=== PATIENT | male | born 1945 | race Caucasian/White ===

== ENCOUNTER 2017-08-17 12:54 | Emergency (ER) | payer MEDICARE, OTHER ==
[~2017-08-17] VITALS: Ht 167.6 cm; Wt 56.7 kg
[~2017-08-17 12:54] MED LIST: CHOL100015; LOSA50TA6; OMEP20CA9; TIOT18CA
[2017-08-17 14:11] VITALS: BP 152/60
== END 2017-08-17 15:11 | disposition home or self-care (01) ==
LOC: ED 15:05
DX: K40.90 Unilateral inguinal hernia, without obstruction or gangrene, not specified as recurrent (principal)
CPT/HCPCS: 99281; 99282

== ENCOUNTER → 2017-10-18 | Outpatient (CLI) | payer OTHER ==
[~2017-10-18] MED LIST changes: -LOSA50TA6; +LOSA50TA7
== END | disposition home or self-care (01) ==
LOC: CFH 10:22
PROVIDERS: ATTEND Family Medicine
DX: Z12.2 Encounter for screening for malignant neoplasm of respiratory organs (principal); R91.8 Other nonspecific abnormal finding of lung field; I25.10 Atherosclerotic heart disease of native coronary artery without angina pectoris; J43.9 Emphysema, unspecified; F17.210 Nicotine dependence, cigarettes, uncomplicated
CPT/HCPCS: G0297

== ENCOUNTER → 2017-11-20 | Outpatient (CLI) | payer OTHER ==
[~2017-11-20] MED LIST changes: +None per pt
== END | disposition home or self-care (01) ==
LOC: RAD 12:27
PROVIDERS: ATTEND Internal Medicine
DX: R91.8 Other nonspecific abnormal finding of lung field (principal); J43.2 Centrilobular emphysema
CPT/HCPCS: 71250

== ENCOUNTER 2017-11-22 08:24 | Day surgery (SDC) | payer OTHER ==
[~2017-11-22] VITALS: Ht 167.6 cm; Wt 55.5 kg
[2017-11-22] MEDS ORDERED: LACTATED RINGERS 1,000 ML IV SCH (08:55)
[2017-11-22 08:57] VITALS: BP 125/77
[2017-11-22] MEDS ORDERED: LIDOCAINE-MPF 1%, 2ML INFIL ONE (09:00)
[2017-11-22] MEDS ORDERED: FENTANYL PF 100 MCG/2ML ONE (10:16)
[2017-11-22] MEDS ORDERED: OXYcodone 5 MG/5 ML ORAL.SOL UDC PO PRN (11:30)
[2017-11-22] MEDS ORDERED: PROMETHAZINE 25 MG/ML, 1ML IV PRN (11:30)
[2017-11-22] MEDS ORDERED: ONDANSETRON 2MG/ML, 2ML IV PRN (11:30)
[2017-11-22] MEDS ORDERED: FENTANYL PF 100 MCG/2ML IV PRN (11:30)
[2017-11-22] MEDS ORDERED: ONDANSETRON ODT 8 MG PO PRN (11:30)
[2017-11-22] MEDS ORDERED: ACETAMINOPHEN 325 MG TABLET PO PRN (11:30)
[2017-11-22] MEDS ORDERED: PROPOFOL 10 MG/ML, 20ML ONE (12:17)
[2017-11-22] MEDS ORDERED: CEFAZOLIN 1,000 MG ONE (12:17)
[2017-11-22] MEDS ORDERED: DEXAMETHASONE 4 MG/ML, 1ML ONE (12:17)
[2017-11-22] MEDS ORDERED: GLYCOPYRROLATE 0.2MG/1ML, 5ML ONE (12:17)
[2017-11-22] MEDS ORDERED: ROCURONIUM 10MG/ML,5ML ONE (12:17)
[2017-11-22] MEDS ORDERED: SUCCINYLCHOLINE 20 MG/ML, 10ML ONE (12:17)
[2017-11-22] MEDS ORDERED: NEOSTIGMINE 1 MG/ML, 10ML ONE (12:17)
[2017-11-22] MEDS ORDERED: ONDANSETRON 2MG/ML, 2ML ONE (12:17)
== END 2017-11-22 15:05 | disposition home or self-care (01) ==
LOC: OUT 08:24
PROVIDERS: ATTEND Internal Medicine
DX: C34.12 Malignant neoplasm of upper lobe, left bronchus or lung (principal); J43.9 Emphysema, unspecified; F17.200 Nicotine dependence, unspecified, uncomplicated; Z79.82 Long term (current) use of aspirin
CPT/HCPCS: 31625; 31627; 31628; 31629; 71045; 76001; 88172; 88173; 88177; 88305; 88341; 88342; 93005; J0330; J0690; J1100; J2405; J2704; J2710; J3010; J3490; J7120; G0461

== ENCOUNTER → 2017-11-28 | Outpatient (CLI) | payer OTHER | END | disposition home or self-care (01) | LOC: CARD 13:34 | PROVIDERS: ATTEND Internal Medicine | DX: J44.9 Chronic obstructive pulmonary disease, unspecified (principal) | CPT/HCPCS: 94060; 94618; 94726; 94729 ==

== ENCOUNTER → 2017-11-30 | Outpatient (CLI) | payer OTHER | END | disposition home or self-care (01) | LOC: PETCFH 09:45 | PROVIDERS: ATTEND Thoracic Surgery (Cardiothoracic Vascular Surgery) | DX: J43.9 Emphysema, unspecified (principal); R91.1 Solitary pulmonary nodule | CPT/HCPCS: 78815; A9552 ==

== ENCOUNTER → 2017-12-07 | Outpatient (CLI) | payer OTHER | END | disposition home or self-care (01) | LOC: ROC 07:33 | PROVIDERS: ATTEND Radiology Radiation Oncology | DX: C34.12 Malignant neoplasm of upper lobe, left bronchus or lung (principal) | CPT/HCPCS: 99214; G0463 ==

== ENCOUNTER → 2018-04-18 | Outpatient (CLI) | payer MEDICARE ==
[~2018-04-18] MED LIST changes: +LOSA50TA14; -LOSA50TA7
== END | disposition home or self-care (01) ==
LOC: CFH 10:41
PROVIDERS: ATTEND Radiology Radiation Oncology
DX: J98.2 Interstitial emphysema (principal); C34.12 Malignant neoplasm of upper lobe, left bronchus or lung; I10 Essential (primary) hypertension; I70.0 Atherosclerosis of aorta; N28.1 Cyst of kidney, acquired; M62.89 Other specified disorders of muscle; R91.8 Other nonspecific abnormal finding of lung field
CPT/HCPCS: 71250

== ENCOUNTER → 2018-04-19 | Outpatient (CLI) | payer MEDICARE | END | disposition home or self-care (01) | LOC: ROC 07:53 | PROVIDERS: ATTEND Radiology Radiation Oncology | DX: Z08 Encounter for follow-up examination after completed treatment for malignant neoplasm (principal); C34.12 Malignant neoplasm of upper lobe, left bronchus or lung | CPT/HCPCS: 99213; G0463 ==

== ENCOUNTER → 2018-08-27 | Outpatient (CLI) | payer MEDICARE | END | disposition home or self-care (01) | LOC: CFH 09:10 | PROVIDERS: ATTEND Radiology Radiation Oncology | DX: C34.12 Malignant neoplasm of upper lobe, left bronchus or lung (principal); R91.8 Other nonspecific abnormal finding of lung field | CPT/HCPCS: 71250 ==

== ENCOUNTER 2018-09-17 07:45 | Outpatient (CLI) | payer MEDICARE | END 2018-09-17 23:59 | disposition home or self-care (01) | LOC: ROC 07:45 | PROVIDERS: ATTEND Radiology Radiation Oncology | DX: C34.12 Malignant neoplasm of upper lobe, left bronchus or lung (principal) | CPT/HCPCS: 99213; G0463 ==

== ENCOUNTER 2018-12-19 09:20 | Inpatient (IN) | payer MEDICARE ==
[~2018-12-19] VITALS: Ht 170.2 cm; Wt 56.7 kg
[2018-12-19] MEDS ORDERED: SODIUM CHLORIDE FLUSH 10ML SYR IVF ONE (10:00)
--- NOTE | 2018-12-19 10:36 | NUR ---
dr solorio spoke with dr rhodes
[2018-12-19 10:39] LABS: MEAN CORPUSCULAR HEMOGLOBIN 37.1 pg (27.5-34.5); MEAN CORPUSCULAR HGB CONC 33.2 g/dL (33.2-36.2); MEAN CORPUSCULAR VOLUME 111.8 fL (81-97); MEAN PLATELET VOLUME 8.9 fL (7.4-10.4); PLATELET COUNT 233 x10^3/uL (130-400); RED BLOOD COUNT 3.63 x10^6/uL (4.38-5.82); RED CELL DISTRIBUTION WIDTH 18.5 % (9.4-14.8)
[2018-12-19 10:49] LABS: INTERNATIONAL NORMALIZED RATIO 0.95 (0.93-1.1)
[2018-12-19 10:50] LABS: ALANINE AMINOTRANSFERASE 13 U/L (12-78); ALBUMIN 4.2 g/dL (3.4-5.0); ANION GAP 6 mmol/L (5-15); CALCIUM 8.9 mg/dL (8.5-10.1); CHLORIDE 106 mmol/L (98-107); CREATININE 0.74 mg/dL (0.7-1.3)
[2018-12-19 10:54] LABS: ALKALINE PHOSPHATASE 87 U/L (45-117); BILIRUBIN,TOTAL 0.8 mg/dL (0.2-1.0); TOTAL PROTEIN 8.5 g/dL (6.4-8.2); TROPONIN I < 0.015 ng/mL (0.000-0.045)
[2018-12-19 10:59] LABS: BASOPHILS # (AUTO) 0.05 x10^3/uL (0-0.1); BASOPHILS % (AUTO) 1 % (0-1); EOSINOPHILS # (AUTO) 0.07 x10^3/uL (0-0.4); EOSINOPHILS % (AUTO) 1 % (1-7); LYMPHOCYTES # (AUTO) 1.63 x10^3/uL (1-3.4); LYMPHOCYTES % (AUTO) 23 % (22-44); MD SCAN; MONOCYTES # (AUTO) 0.61 x10^3/uL (0.2-0.8); MONOCYTES % (AUTO) 9 % (2-9); NEUTROPHILS % (AUTO) 67 % (42-75)
[2018-12-19] MEDS ORDERED: DEXAMETHASONE 4 MG/ML, 1ML IVPush ONE (11:00)
[2018-12-19] MEDS ORDERED: FAMOTIDINE 20 MG/2 ML IVPush ONE (11:00)
[2018-12-19] MEDS ORDERED: FAMOTIDINE 20 MG/2 ML ONE (11:03)
[2018-12-19] MEDS ORDERED: DEXAMETHASONE 4 MG/ML, 1ML ONE (11:03)
[2018-12-19] MEDS ORDERED: GADOTERATE 7.5 MMOL/15 ML SYR ONE (11:34)
[2018-12-19] MEDS ORDERED: SODIUM CHLORIDE FLUSH 10ML SYR IVF PRN (12:00)
[2018-12-19] MEDS ORDERED: BUTALB/APAP/CAFFEINE 50MG/325MG/40MG PO PRN (12:30)
[2018-12-19] MEDS ORDERED: ONDANSETRON 2MG/ML, 2ML IVPush PRN (12:30)
[2018-12-19] MEDS ORDERED: ONDANSETRON ODT 4 MG PO PRN (12:30)
[2018-12-19] MEDS ORDERED: GUAIFENESIN/DM 200-20MG, 10ML UDC PO PRN (12:30)
[2018-12-19] MEDS ORDERED: hydrALAzine 20 MG/ML, 1ML IVPush PRN (12:30)
[2018-12-19] MEDS ORDERED: ACETAMINOPHEN 325 MG TABLET PO PRN (12:30)
[2018-12-19] MEDS ORDERED: CYCLOBENZAPRINE 10 MG TABLET PO PRN (12:30)
[2018-12-19] MEDS ORDERED: morphine SULFATE 10 MG/ML, 1ML IVPush PRN (12:30)
[2018-12-19] MEDS ORDERED: POLYETHYLENE GLYCOL 17 GM PACKET PO PRN (12:30)
[2018-12-19] MEDS ORDERED: ALBUTEROL/IPRATROPIUM 2.5MG/0.5MG, 3 ML ONE (13:09)
--- NOTE | 2018-12-19 13:15 | NUR ---
PT ATTEMPTED TO PROVIDE URINE SAMPLE. UNABLE AT THIS TIME. URINAL AT BEDSIDE. UPDATED ON PLAN OF CARE, DENIES ANY NEEDS OR CONCERNS, CALL LIGHT IN REACH.
--- NOTE | 2018-12-19 13:21 | NUR ---
REPORT CALLED TO RECEIVING RN.
[2018-12-19] MEDS: ENOXAPARIN 30 MG/0.3 ML SQ SCH (16:44)
[2018-12-19] MEDS: NICOTINE 21 MG/24 HR PATCH.TD24 TD SCH (16:44)
[2018-12-19] MEDS: DEXAMETHASONE 4 MG/ML, 1ML IVPush SCH ×2 (16:44→22:37)
[2018-12-19 17:12] LABS: MICROSCOPIC NOT IND
[2018-12-19 17:15] LABS: CULTURE INDICATED? NO
[2018-12-19 18:00] VITALS: BP 156/64
[2018-12-19 19:05] VITALS: BP 128/69
[2018-12-19] MEDS: ALBUTEROL/IPRATROPIUM 2.5MG/0.5MG, 3 ML NPPB SCH (19:47)
[2018-12-19] MEDS: BUDESONIDE 0.5 MG/2 ML INHA INH SCH (19:47)
[2018-12-19] MEDS: FAMOTIDINE 20 MG TABLET PO SCH (21:06)
[2018-12-20 00:54] VITALS: BP 124/57
[2018-12-20] MEDS: DEXAMETHASONE 4 MG/ML, 1ML IVPush SCH ×4 (04:31→23:10)
[2018-12-20] MEDS: ENOXAPARIN 30 MG/0.3 ML SQ SCH (04:36)
[2018-12-20 04:56] LABS: MEAN CORPUSCULAR HEMOGLOBIN 37.6 pg (27.5-34.5); MEAN CORPUSCULAR HGB CONC 33.4 g/dL (33.2-36.2); MEAN CORPUSCULAR VOLUME 112.7 fL (81-97); MEAN PLATELET VOLUME 9.2 fL (7.4-10.4); PLATELET COUNT 212 x10^3/uL (130-400); RED BLOOD COUNT 3.31 x10^6/uL (4.38-5.82); RED CELL DISTRIBUTION WIDTH 18.1 % (9.4-14.8)
[2018-12-20 05:03] LABS: ALBUMIN 3.7 g/dL (3.4-5.0); ANION GAP 6 mmol/L (5-15); CALCIUM 8.9 mg/dL (8.5-10.1); CHLORIDE 104 mmol/L (98-107)
[2018-12-20 05:07] LABS: ALANINE AMINOTRANSFERASE 17 U/L (12-78); ALKALINE PHOSPHATASE 73 U/L (45-117); BILIRUBIN,TOTAL 1.1 mg/dL (0.2-1.0); CREATININE 0.85 mg/dL (0.7-1.3); TOTAL PROTEIN 7.8 g/dL (6.4-8.2)
[2018-12-20 06:05] LABS: BASOPHILS # (AUTO) 0.01 x10^3/uL (0-0.1); BASOPHILS % (AUTO) 0 % (0-1); EOSINOPHILS # (AUTO) 0.04 x10^3/uL (0-0.4); EOSINOPHILS % (AUTO) 1 % (1-7); LYMPHOCYTES # (AUTO) 0.89 x10^3/uL (1-3.4); LYMPHOCYTES % (AUTO) 15 % (22-44); MD SCAN; MONOCYTES # (AUTO) 0.23 x10^3/uL (0.2-0.8); MONOCYTES % (AUTO) 4 % (2-9); NEUTROPHILS # (AUTO) 4.78 x10^3/uL (1.8-6.8); NEUTROPHILS % (AUTO) 80 % (42-75)
[2018-12-20] MEDS: BUDESONIDE 0.5 MG/2 ML INHA INH SCH ×2 (06:32→20:51)
[2018-12-20] MEDS: ALBUTEROL/IPRATROPIUM 2.5MG/0.5MG, 3 ML NPPB SCH (06:32)
[2018-12-20 07:02] VITALS: BP 128/61
[2018-12-20] MEDS ORDERED: ALBUTEROL/IPRATROPIUM 2.5MG/0.5MG, 3 ML NPPB PRN (10:00)
[2018-12-20 10:11] LABS: FREE T4 (FREE THYROXINE) 1.06 ng/dL (0.76-1.46)
[2018-12-20] MEDS: LEVETIRACETAM 500 MG TABLET PO SCH ×2 (10:31→20:02)
[2018-12-20] MEDS: FAMOTIDINE 20 MG TABLET PO SCH ×2 (10:31→20:02)
[2018-12-20 13:21] VITALS: BP 142/62
[2018-12-20] MEDS: NICOTINE 21 MG/24 HR PATCH.TD24 TD SCH (17:20)
[2018-12-20 18:33] VITALS: BP 125/54
[2018-12-21 00:21] VITALS: BP 124/57
[2018-12-21] MEDS: TRAZODONE 50MG TABLET PO PRN (01:30)
[2018-12-21] MEDS: DEXAMETHASONE 4 MG/ML, 1ML IVPush SCH ×4 (04:58→23:23)
[2018-12-21 06:44] VITALS: BP 130/65
[2018-12-21] MEDS: BUDESONIDE 0.5 MG/2 ML INHA INH SCH ×2 (07:50→20:58)
[2018-12-21] MEDS: ENOXAPARIN 40 MG/0.4 ML SQ SCH (08:10)
[2018-12-21] MEDS: LEVETIRACETAM 500 MG TABLET PO SCH ×2 (08:10→21:14)
[2018-12-21 13:35] VITALS: BP 131/61
[2018-12-21] MEDS: NICOTINE 21 MG/24 HR PATCH.TD24 TD SCH (14:03)
[2018-12-21 18:48] VITALS: BP 115/48
[2018-12-21] MEDS: FAMOTIDINE 20 MG TABLET PO SCH (21:14)
[2018-12-22 02:56] VITALS: BP 125/54
[2018-12-22] MEDS: DEXAMETHASONE 4 MG/ML, 1ML IVPush SCH ×4 (05:09→23:12)
[2018-12-22 06:30] VITALS: BP 114/54
[2018-12-22] MEDS: BUDESONIDE 0.5 MG/2 ML INHA INH SCH ×2 (09:00→21:00)
[2018-12-22] MEDS: ENOXAPARIN 40 MG/0.4 ML SQ SCH (09:34)
[2018-12-22] MEDS: LEVETIRACETAM 500 MG TABLET PO SCH ×2 (09:34→20:40)
[2018-12-22] MEDS: CYANOCOBALAMIN 1,000 MCG TABLET PO SCH (13:06)
[2018-12-22] MEDS: NICOTINE 21 MG/24 HR PATCH.TD24 TD SCH (13:07)
[2018-12-22 13:55] VITALS: BP 122/58
[2018-12-22 18:45] VITALS: BP 113/64
[2018-12-22] MEDS: FAMOTIDINE 20 MG TABLET PO SCH (20:40)
[2018-12-23 01:13] VITALS: BP 127/62
[2018-12-23 05:09] LABS: MEAN CORPUSCULAR HEMOGLOBIN 37.1 pg (27.5-34.5); MEAN CORPUSCULAR HGB CONC 32.9 g/dL (33.2-36.2); MEAN CORPUSCULAR VOLUME 112.9 fL (81-97); MEAN PLATELET VOLUME 9.3 fL (7.4-10.4); PLATELET COUNT 224 x10^3/uL (130-400); RED BLOOD COUNT 3.21 x10^6/uL (4.38-5.82); RED CELL DISTRIBUTION WIDTH 17.6 % (9.4-14.8)
[2018-12-23 05:15] LABS: INTERNATIONAL NORMALIZED RATIO 0.97 (0.93-1.1); PROTHROMBIN TIME 10.2 Seconds (9.6-11.5)
[2018-12-23 05:18] LABS: ANION GAP 5 mmol/L (5-15); CALCIUM 8.9 mg/dL (8.5-10.1); CHLORIDE 106 mmol/L (98-107); CREATININE 0.83 mg/dL (0.7-1.3)
[2018-12-23] MEDS: DEXAMETHASONE 4 MG/ML, 1ML IVPush SCH ×4 (05:27→23:59)
[2018-12-23 05:42] LABS: BASOPHILS % (AUTO) 0 % (0-1); EOSINOPHILS % (AUTO) 0 % (1-7); LYMPHOCYTES # (AUTO) 0.93 x10^3/uL (1-3.4); LYMPHOCYTES % (AUTO) 8 % (22-44); MD SCAN; MONOCYTES % (AUTO) 5 % (2-9); NEUTROPHILS # (AUTO) 9.54 x10^3/uL (1.8-6.8); NEUTROPHILS % (AUTO) 86 % (42-75)
[2018-12-23 07:10] VITALS: BP 122/66
[2018-12-23] MEDS ORDERED: GADOTERATE 7.5 MMOL/15 ML SYR ONE (08:30)
[2018-12-23] MEDS: ENOXAPARIN 40 MG/0.4 ML SQ SCH ×2 (09:00→10:06)
[2018-12-23] MEDS: BUDESONIDE 0.5 MG/2 ML INHA NPPB SCH ×2 (09:20→20:13)
[2018-12-23] MEDS: LEVETIRACETAM 500 MG TABLET PO SCH ×2 (10:04→19:58)
[2018-12-23] MEDS: CYANOCOBALAMIN 1,000 MCG TABLET PO SCH (10:04)
[2018-12-23 12:35] VITALS: BP 133/57
[2018-12-23] MEDS: NICOTINE 21 MG/24 HR PATCH.TD24 TD SCH (15:02)
[2018-12-23 18:32] VITALS: BP 119/67
[2018-12-23] MEDS: FAMOTIDINE 20 MG TABLET PO SCH (19:58)
[2018-12-24] MEDS: TRAZODONE 50MG TABLET PO PRN (00:04)
[2018-12-24 00:45] VITALS: BP 109/55
[2018-12-24] MEDS: DEXAMETHASONE 4 MG/ML, 1ML IVPush SCH ×4 (05:22→20:27)
[2018-12-24] MEDS ORDERED: SODIUM CHLORIDE 0.45% 1,000 ML IV SCH (06:00)
[2018-12-24 06:38] VITALS: BP 133/63
[2018-12-24] MEDS ORDERED: DEXAMETHASONE 4 MG/ML, 5ML ONE (06:52)
[2018-12-24] MEDS ORDERED: FUROSEMIDE 20 MG/2 ML ONE (06:52)
[2018-12-24] MEDS ORDERED: PAPAVERINE 30 MG/ML, 2ML ONE (06:52)
[2018-12-24] MEDS ORDERED: BUPIVACAINE/PF 0.5% ONE (06:52)
[2018-12-24] MEDS ORDERED: MANNITOL PMX 20% 500 ML ONE (06:53)
[2018-12-24] MEDS ORDERED: EPINEPHRINE 1 MG/ML, 1ML ONE (06:53)
[2018-12-24] MEDS ORDERED: BACITRACIN 50,000 UNIT ONE (06:53)
[2018-12-24] MEDS ORDERED: THROMBIN SPRAY 20,000 UNIT SPRAY TP ONE (06:53)
[2018-12-24] MEDS ORDERED: FENTANYL PF 250 MCG/5ML ONE (07:04)
[2018-12-24] MEDS ORDERED: PROPOFOL 10 MG/ML, 20ML ONE ×3 (07:04→09:08)
[2018-12-24] MEDS ORDERED: LIDOCAINE-MPF 2% ,5ML ONE ×3 (07:06→09:12)
[2018-12-24] MEDS ORDERED: ROCURONIUM 10MG/ML,5ML ONE ×2 (07:06)
[2018-12-24] MEDS ORDERED: PHENYLEPHRINE 10 MG/ML ONE (07:08)
[2018-12-24] MEDS ORDERED: DEXAMETHASONE 4 MG/ML, 1ML ONE ×4 (07:10→09:18)
[2018-12-24] MEDS ORDERED: PROPOFOL 50 ML ONE ×2 (07:11→09:08)
[2018-12-24] MEDS ORDERED: REMIFENTANIL 2 MG ONE (07:14)
[2018-12-24] MEDS ORDERED: HYDROcodone/APAP 5/325 TABLET PO PRN (08:00)
[2018-12-24] MEDS ORDERED: LABETALOL 5MG/ML, 20ML IVPush SCH (08:00)
[2018-12-24] MEDS ORDERED: HYDROmorphone 2 MG/ML, 1ML IV PRN (08:00)
[2018-12-24] MEDS ORDERED: SODIUM CHLORIDE 0.9% PF 10ML ONE ×3 (08:12→09:14)
[2018-12-24] MEDS ORDERED: CEFAZOLIN 1,000 MG ONE ×6 (08:13→09:14)
[2018-12-24] MEDS ORDERED: POTASSIUM CHLORIDE 40 MEQ in SODIUM CHLORIDE 0.9% 1,000 ML IV SCH (08:30)
[2018-12-24] MEDS ORDERED: BUPIVACAINE/PF-EPI 0.5% 1:200K INFIL ONE (08:37)
[2018-12-24] MEDS: SENNA/DOCUSATE TABLET PO SCH (09:00)
[2018-12-24] MEDS: LEVETIRACETAM 500 MG TABLET PO SCH (09:00)
[2018-12-24] MEDS: CYANOCOBALAMIN 1,000 MCG TABLET PO SCH (09:00)
[2018-12-24] MEDS: BUDESONIDE 0.5 MG/2 ML INHA NPPB SCH ×2 (09:00→20:42)
[2018-12-24] MEDS ORDERED: ONDANSETRON 2MG/ML, 2ML ONE (09:21)
[2018-12-24] MEDS ORDERED: HYDROcodone/APAP 7.5-325MG/15ML UDC PO PRN (09:30)
[2018-12-24] MEDS ORDERED: PROMETHAZINE 25 MG/ML, 1ML IV PRN (09:30)
[2018-12-24] MEDS ORDERED: LABETALOL 5MG/ML, 20ML IV PRN (09:30)
[2018-12-24] MEDS ORDERED: ONDANSETRON 2MG/ML, 2ML IV PRN (09:30)
[2018-12-24] MEDS ORDERED: hydrALAzine 20 MG/ML, 1ML IV PRN (09:30)
[2018-12-24] MEDS ORDERED: EPHEDRINE 50 MG/ML, 1ML IVPush PRN (09:30)
[2018-12-24] MEDS ORDERED: FENTANYL PF 100 MCG/2ML IV PRN (09:30)
[2018-12-24] MEDS ORDERED: HYDROmorphone 2 MG/ML, 1ML IVPush PRN (09:30)
[2018-12-24] MEDS ORDERED: MEPERIDINE/PF 25MG/ML,1ML IVPush PRN (09:30)
[2018-12-24] MEDS ORDERED: GLYCOPYRROLATE 0.2MG/1ML, 5ML ONE (10:26)
[2018-12-24] MEDS ORDERED: NEOSTIGMINE 1 MG/ML, 10ML ONE (10:26)
[2018-12-24] MEDS ORDERED: THROMBIN 20,000 UNIT VIAL TP ONE (10:31)
[2018-12-24] MEDS ORDERED: BACITRACIN 50,000 UNIT IRRIG ONE (10:31)
[2018-12-24] MEDS ORDERED: BACITRACIN OINT 500U/GM, 15 GM ONE (10:44)
[2018-12-24] MEDS ORDERED: NALOXONE 0.4 MG/ML, 1ML ONE (11:59)
[2018-12-24] MEDS: NICOTINE 21 MG/24 HR PATCH.TD24 TD SCH (14:11)
[2018-12-24] MEDS ORDERED: ENALAPRILAT 1.25 MG/ML, 2ML IV PRN (14:30)
[2018-12-24] MEDS ORDERED: LEVETIRACETAM 1,000 MG in SODIUM CHLORIDE 0.9% 100 ML IV ONE (14:30)
[2018-12-24] MEDS: SODIUM CHLORIDE 0.9% 1,000 ML IV SCH (14:33)
[2018-12-24] MEDS: CEFAZOLIN PMX 1GM/50ML 50 ML IVPB SCH (16:18)
[2018-12-24] MEDS: LABETALOL 5MG/ML, 20ML IVPush PRN (17:39)
[2018-12-24] MEDS: ONDANSETRON 2MG/ML, 2ML IV PRN (18:52)
[2018-12-24] MEDS: hydrALAzine 20 MG/ML, 1ML IV PRN (20:20)
[2018-12-24] MEDS ORDERED: FAMOTIDINE 20 MG TABLET PO SCH (21:00)
[2018-12-24] MEDS: FAMOTIDINE 20 MG/2 ML IV SCH (22:14)
[2018-12-24] MEDS: LEVETIRACETAM 500 MG in SODIUM CHLORIDE 0.9% 100 ML IV SCH (22:35)
[2018-12-25] MEDS: CEFAZOLIN PMX 1GM/50ML 50 ML IVPB SCH (00:19)
[2018-12-25] MEDS: SODIUM CHLORIDE 0.9% 1,000 ML IV SCH ×3 (02:06→20:30)
[2018-12-25] MEDS: DEXAMETHASONE 4 MG/ML, 1ML IVPush SCH ×5 (03:19→20:07)
[2018-12-25 04:36] LABS: MEAN CORPUSCULAR HEMOGLOBIN 36.2 pg (27.5-34.5); MEAN CORPUSCULAR HGB CONC 32.6 g/dL (33.2-36.2); MEAN PLATELET VOLUME 8.9 fL (7.4-10.4); PLATELET COUNT 231 x10^3/uL (130-400); RED BLOOD COUNT 3.34 x10^6/uL (4.38-5.82); RED CELL DISTRIBUTION WIDTH 17.4 % (9.4-14.8)
[2018-12-25 04:43] LABS: ANION GAP 7 mmol/L (5-15); CALCIUM 7.5 mg/dL (8.5-10.1); CHLORIDE 108 mmol/L (98-107); CREATININE 0.61 mg/dL (0.7-1.3)
[2018-12-25 05:00] VITALS: BP 133/55
[2018-12-25 05:08] LABS: BASOPHILS # (AUTO) 0.01 x10^3/uL (0-0.1); BASOPHILS % (AUTO) 0 % (0-1); EOSINOPHILS # (AUTO) 0.01 x10^3/uL (0-0.4); EOSINOPHILS % (AUTO) 0 % (1-7); LYMPHOCYTES # (AUTO) 0.89 x10^3/uL (1-3.4); LYMPHOCYTES % (AUTO) 4 % (22-44); MD SCAN; MONOCYTES % (AUTO) 1 % (2-9); NEUTROPHILS # (AUTO) 21.86 x10^3/uL (1.8-6.8); NEUTROPHILS % (AUTO) 95 % (42-75)
[2018-12-25] MEDS ORDERED: GADOTERATE 7.5 MMOL/15 ML SYR ONE (05:57)
[2018-12-25] MEDS: ONDANSETRON 2MG/ML, 2ML IV PRN (07:48)
[2018-12-25] MEDS: hydrALAzine 20 MG/ML, 1ML IV PRN ×3 (07:48→15:46)
[2018-12-25] MEDS: FAMOTIDINE 20 MG/2 ML IV SCH ×2 (08:36→20:07)
[2018-12-25] MEDS: BUDESONIDE 0.5 MG/2 ML INHA NPPB SCH ×2 (09:35→21:15)
[2018-12-25] MEDS: CYANOCOBALAMIN 1,000 MCG TABLET PO SCH (09:44)
[2018-12-25] MEDS: SENNA/DOCUSATE TABLET PO SCH (09:44)
[2018-12-25] MEDS: LEVETIRACETAM 500 MG in SODIUM CHLORIDE 0.9% 100 ML IV SCH ×2 (10:47→22:49)
[2018-12-25] MEDS: LABETALOL 5MG/ML, 20ML IVPush PRN (13:44)
--- NOTE | 2018-12-25 14:15 | NUR ---
RECOMMEND: ELFEGO/ SALOMÓNS -Straws ok -1:1assist with meals -Up in chair for all meals -float meds Addendum: 12/25/18 at [address] Amended: Links added.
[2018-12-26 05:00] VITALS: BP 137/51
[2018-12-26] MEDS: SENNA/DOCUSATE TABLET PO SCH (09:15)
[2018-12-26] MEDS: CYANOCOBALAMIN 1,000 MCG TABLET PO SCH (09:15)
[2018-12-26] MEDS: FAMOTIDINE 20 MG/2 ML IV SCH (09:15)
[2018-12-26] MEDS: DEXAMETHASONE 4 MG/ML, 1ML IVPush SCH ×2 (09:18→21:11)
[2018-12-26] MEDS: BUDESONIDE 0.5 MG/2 ML INHA NPPB SCH ×2 (09:38→18:32)
[2018-12-26] MEDS: HEPARIN 5,000 UNITS/ML, 1ML SQ SCH ×2 (09:40→21:11)
[2018-12-26] MEDS: SODIUM CHLORIDE 0.9% 1,000 ML IV SCH ×2 (09:40→16:42)
[2018-12-26] MEDS: LEVETIRACETAM 500 MG in SODIUM CHLORIDE 0.9% 100 ML IV SCH ×2 (11:20→22:51)
[2018-12-26 13:34] VITALS: BP 143/56
[2018-12-26 18:40] VITALS: BP 150/55
[2018-12-26] MEDS: FAMOTIDINE 20 MG TABLET PO SCH (21:11)
[2018-12-27] MEDS: SODIUM CHLORIDE 0.9% 1,000 ML IV SCH ×2 (01:51→15:52)
[2018-12-27 02:45] VITALS: BP 126/64
[2018-12-27 07:05] VITALS: BP 123/66
[2018-12-27] MEDS: CYANOCOBALAMIN 1,000 MCG TABLET PO SCH (08:36)
[2018-12-27] MEDS: FAMOTIDINE 20 MG TABLET PO SCH ×2 (08:36→21:14)
[2018-12-27] MEDS: SENNA/DOCUSATE TABLET PO SCH (08:36)
[2018-12-27] MEDS: DEXAMETHASONE 4 MG/ML, 1ML IVPush SCH ×2 (08:37→21:14)
[2018-12-27] MEDS: HEPARIN 5,000 UNITS/ML, 1ML SQ SCH ×3 (08:42→19:43)
[2018-12-27] MEDS: BUDESONIDE 0.5 MG/2 ML INHA NPPB SCH ×2 (08:50→20:00)
[2018-12-27] MEDS: LEVETIRACETAM 500 MG in SODIUM CHLORIDE 0.9% 100 ML IV SCH ×2 (11:14→22:46)
[2018-12-27] MEDS: BACITRACIN OINT 500U/GM, 15 GM TP SCH (12:19)
[2018-12-27 12:32] VITALS: BP 120/53
--- NOTE | 2018-12-27 15:00 | NUR ---
ELFEGO/ CAMILLA -Kamron ok -1:1assist with meals -Up in chair for all meals -float meds Addendum: 12/27/18 at [address] Amended: Links added.
[2018-12-27 19:54] VITALS: BP 135/66
[2018-12-28] MEDS: SODIUM CHLORIDE 0.9% 1,000 ML IV SCH (00:20)
[2018-12-28 00:28] VITALS: BP 131/60
[2018-12-28 07:35] VITALS: BP 131/58
[2018-12-28] MEDS: BUDESONIDE 0.5 MG/2 ML INHA NPPB SCH ×2 (09:08→19:28)
[2018-12-28] MEDS: DEXAMETHASONE 4 MG/ML, 1ML IVPush SCH ×2 (09:23→21:08)
[2018-12-28] MEDS: HEPARIN 5,000 UNITS/ML, 1ML SQ SCH ×2 (09:24→11:26)
[2018-12-28 10:05] LABS: ANION GAP 5 mmol/L (5-15); CALCIUM 7.6 mg/dL (8.5-10.1); CHLORIDE 104 mmol/L (98-107); CREATININE 0.48 mg/dL (0.7-1.3)
[2018-12-28 10:11] LABS: MEAN CORPUSCULAR HEMOGLOBIN 37.2 pg (27.5-34.5); MEAN CORPUSCULAR HGB CONC 33.6 g/dL (33.2-36.2); MEAN CORPUSCULAR VOLUME 110.8 fL (81-97); RED BLOOD COUNT 2.58 x10^6/uL (4.38-5.82); RED CELL DISTRIBUTION WIDTH 16.8 % (9.4-14.8)
[2018-12-28 10:14] LABS: BASOPHILS # (AUTO) 0.02 x10^3/uL (0-0.1); BASOPHILS % (AUTO) 0 % (0-1); EOSINOPHILS % (AUTO) 1 % (1-7); LYMPHOCYTES # (AUTO) 1.83 x10^3/uL (1-3.4); LYMPHOCYTES % (AUTO) 18 % (22-44); MD SCAN; MEAN PLATELET VOLUME 9.2 fL (7.4-10.4); MONOCYTES # (AUTO) 1.06 x10^3/uL (0.2-0.8); MONOCYTES % (AUTO) 10 % (2-9); NEUTROPHILS # (AUTO) 7.25 x10^3/uL (1.8-6.8); NEUTROPHILS % (AUTO) 71 % (42-75); PLATELET COUNT 184 x10^3/uL (130-400)
[2018-12-28] MEDS: LEVETIRACETAM 500 MG in SODIUM CHLORIDE 0.9% 100 ML IV SCH ×2 (11:26→22:59)
[2018-12-28] MEDS: SENNA/DOCUSATE TABLET PO SCH (11:26)
[2018-12-28] MEDS: FAMOTIDINE 20 MG TABLET PO SCH ×2 (11:26→21:07)
[2018-12-28] MEDS: CYANOCOBALAMIN 1,000 MCG TABLET PO SCH (11:26)
[2018-12-28] MEDS: BACITRACIN OINT 500U/GM, 15 GM TP SCH (13:42)
[2018-12-28 15:15] VITALS: BP 122/59
[2018-12-28 18:55] VITALS: BP 115/46
[2018-12-29 00:41] VITALS: BP 103/54
[2018-12-29] MEDS ORDERED: HEPARIN 5,000 UNITS/ML, 1ML SQ SCH (01:00)
[2018-12-29 07:22] VITALS: BP 117/60
[2018-12-29] MEDS: BUDESONIDE 0.5 MG/2 ML INHA NPPB SCH ×2 (09:00→20:45)
[2018-12-29] MEDS ORDERED: DEXA4TAB66 PO ×2 (09:30→09:31)
[2018-12-29] MEDS ORDERED: FAMO20TA7 PO (09:30)
[2018-12-29] MEDS ORDERED: SENN-193 PO (09:30)
[2018-12-29] MEDS ORDERED: CYAN-27 PO (09:30)
[2018-12-29] MEDS ORDERED: ACET325T26 PO (09:30)
[2018-12-29] MEDS ORDERED: CYCL-259 PO (09:30)
[2018-12-29] MEDS ORDERED: POLY17PO5 PO (09:30)
[2018-12-29] MEDS ORDERED: LEVE500T53 PO (09:30)
[2018-12-29] MEDS ORDERED: GUAI5SYR PO (09:30)
[2018-12-29] MEDS ORDERED: ONDA4TAB13 PO (09:30)
[2018-12-29] MEDS ORDERED: HEPA50002 SQ (09:30)
[2018-12-29] MEDS: CYANOCOBALAMIN 1,000 MCG TABLET PO SCH (10:15)
[2018-12-29] MEDS: SENNA/DOCUSATE TABLET PO SCH (10:15)
[2018-12-29] MEDS: FAMOTIDINE 20 MG TABLET PO SCH ×2 (10:15→20:30)
[2018-12-29] MEDS: DEXAMETHASONE 4 MG/ML, 1ML IVPush SCH ×2 (10:16→20:31)
[2018-12-29] MEDS: BACITRACIN OINT 500U/GM, 15 GM TP SCH (10:16)
[2018-12-29] MEDS: LEVETIRACETAM 500 MG in SODIUM CHLORIDE 0.9% 100 ML IV SCH ×2 (10:18→22:02)
[2018-12-29 12:30] VITALS: BP 125/43
[2018-12-29 12:49] VITALS: BP 109/66
[2018-12-29] MEDS: HEPARIN 5,000 UNITS/ML, 1ML SQ SCH (17:42)
[2018-12-29] MEDS: ACETAMINOPHEN 325 MG TABLET PO PRN (17:51)
[2018-12-29 18:12] VITALS: BP 132/65
[2018-12-30 00:57] VITALS: BP 117/58
[2018-12-30 06:50] VITALS: BP 144/62
[2018-12-30] MEDS: FAMOTIDINE 20 MG TABLET PO SCH ×2 (08:23→20:46)
[2018-12-30] MEDS: DEXAMETHASONE 4 MG/ML, 1ML IVPush SCH (08:23)
[2018-12-30] MEDS: SENNA/DOCUSATE TABLET PO SCH (08:24)
[2018-12-30] MEDS: HEPARIN 5,000 UNITS/ML, 1ML SQ SCH (08:24)
[2018-12-30] MEDS: CYANOCOBALAMIN 1,000 MCG TABLET PO SCH (08:24)
[2018-12-30] MEDS: BACITRACIN OINT 500U/GM, 15 GM TP SCH (08:29)
[2018-12-30] MEDS: BUDESONIDE 0.5 MG/2 ML INHA NPPB SCH ×2 (09:00→21:00)
[2018-12-30] MEDS ORDERED: DEXAMETHASONE 4 MG/ML, 1ML IVPush ONE (09:00)
[2018-12-30] MEDS: LEVETIRACETAM 500 MG in SODIUM CHLORIDE 0.9% 100 ML IV SCH ×2 (10:58→22:06)
[2018-12-30 14:48] VITALS: BP 118/50
[2018-12-30] MEDS ORDERED: HEPARIN 5,000 UNITS/ML, 1ML SQ SCH (18:00)
[2018-12-30 19:01] VITALS: BP 139/64
[2018-12-30] MEDS ORDERED: DEXAMETHASONE 4 MG/ML, 1ML IVPush SCH (21:00)
[2018-12-31 01:50] VITALS: BP 109/50
[2018-12-31 05:50] VITALS: BP 126/49
[2018-12-31 06:36] LABS: MEAN CORPUSCULAR HEMOGLOBIN 36.8 pg (27.5-34.5); MEAN CORPUSCULAR HGB CONC 32.9 g/dL (33.2-36.2); MEAN PLATELET VOLUME 8.6 fL (7.4-10.4); PLATELET COUNT 231 x10^3/uL (130-400); RED BLOOD COUNT 2.68 x10^6/uL (4.38-5.82); RED CELL DISTRIBUTION WIDTH 17.6 % (9.4-14.8)
[2018-12-31 07:09] LABS: BASOPHILS # (AUTO) 0.04 x10^3/uL (0-0.1); BASOPHILS % (AUTO) 0 % (0-1); EOSINOPHILS # (AUTO) 0.22 x10^3/uL (0-0.4); EOSINOPHILS % (AUTO) 1 % (1-7); LYMPHOCYTES # (AUTO) 2.08 x10^3/uL (1-3.4); LYMPHOCYTES % (AUTO) 12 % (22-44); MD SCAN; MONOCYTES # (AUTO) 1.43 x10^3/uL (0.2-0.8); MONOCYTES % (AUTO) 8 % (2-9); NEUTROPHILS # (AUTO) 13.16 x10^3/uL (1.8-6.8); NEUTROPHILS % (AUTO) 78 % (42-75)
[2018-12-31] MEDS ORDERED: HEPARIN 5,000 UNITS/ML, 1ML SQ SCH (07:30)
[2018-12-31] MEDS: SENNA/DOCUSATE TABLET PO SCH (08:38)
[2018-12-31] MEDS: FAMOTIDINE 20 MG TABLET PO SCH ×2 (08:38→21:06)
[2018-12-31] MEDS: CYANOCOBALAMIN 1,000 MCG TABLET PO SCH (08:39)
[2018-12-31] MEDS: BUDESONIDE 0.5 MG/2 ML INHA NPPB SCH ×2 (09:00→21:58)
[2018-12-31] MEDS: BACITRACIN OINT 500U/GM, 15 GM TP SCH (09:49)
[2018-12-31] MEDS: ACETAMINOPHEN 325 MG TABLET PO PRN (12:01)
[2018-12-31] MEDS: LEVETIRACETAM 500 MG in SODIUM CHLORIDE 0.9% 100 ML IV SCH ×2 (12:27→23:59)
[2018-12-31 13:36] VITALS: BP 96/45
[2018-12-31 18:35] VITALS: BP 116/56
[2018-12-31] MEDS ORDERED: MELATONIN 3 MG TABLET PO PRN ×2 (21:00→22:30)
[2019-01-01] MEDS: TRAZODONE 50MG TABLET PO PRN (00:02)
[2019-01-01 01:21] VITALS: BP 103/52
[2019-01-01] MEDS: CYANOCOBALAMIN 1,000 MCG TABLET PO SCH (08:15)
[2019-01-01] MEDS: FAMOTIDINE 20 MG TABLET PO SCH (08:15)
[2019-01-01] MEDS: BACITRACIN OINT 500U/GM, 15 GM TP SCH (08:15)
[2019-01-01] MEDS: SENNA/DOCUSATE TABLET PO SCH (08:15)
[2019-01-01 08:51] VITALS: BP 94/45
[2019-01-01] MEDS: BUDESONIDE 0.5 MG/2 ML INHA NPPB SCH (09:00)
[2019-01-01] MEDS: LEVETIRACETAM 500 MG in SODIUM CHLORIDE 0.9% 100 ML IV SCH (12:17)
[2019-01-01 14:39] VITALS: BP 99/54
== END 2019-01-01 15:12 | DRG 25 ==
LOC: ED 12:07 → EDIP 12:29 → 4NW 13:41 → CCU 12-24 11:22 → 4NW 12-26 13:18
PROVIDERS: ADMIT Family Medicine; ATTEND Internal Medicine
PROC: 00U20KZ Supplement Dura Mater with Nonautologous Tissue Substitute, Open Approach (ICD-10-PCS; 2018-12-24)
PROC: BW28ZZZ Computerized Tomography (CT Scan) of Head (ICD-10-PCS; 2018-12-24)
PROC: D020DZZ Stereotactic Other Photon Radiosurgery of Brain (ICD-10-PCS; 2018-12-24)
PROC: 03HY32Z Insertion of Monitoring Device into Upper Artery, Percutaneous Approach (ICD-10-PCS; 2018-12-24)
PROC: 00B00ZZ Excision of Brain, Open Approach (ICD-10-PCS; principal; 2018-12-24 07:30)
DX: C79.31 Secondary malignant neoplasm of brain (principal); G93.6 Cerebral edema; G93.41 Metabolic encephalopathy; E87.1 Hypo-osmolality and hyponatremia; C34.12 Malignant neoplasm of upper lobe, left bronchus or lung; T83.83XA Hemorrhage due to genitourinary prosthetic devices, implants and grafts, initial encounter; D63.8 Anemia in other chronic diseases classified elsewhere; Z99.81 Dependence on supplemental oxygen; J44.9 Chronic obstructive pulmonary disease, unspecified; D53.9 Nutritional anemia, unspecified; D72.829 Elevated white blood cell count, unspecified; D75.89 Other specified diseases of blood and blood-forming organs; T38.0X5A Adverse effect of glucocorticoids and synthetic analogues, initial encounter; Z88.6 Allergy status to analgesic agent; Y92.89 Other specified places as the place of occurrence of the external cause; E03.9 Hypothyroidism, unspecified; F17.200 Nicotine dependence, unspecified, uncomplicated; R32 Unspecified urinary incontinence; Y65.8 Other specified misadventures during surgical and medical care; Z85.118 Personal history of other malignant neoplasm of bronchus and lung; Z87.11 Personal history of peptic ulcer disease; Z92.3 Personal history of irradiation
CPT/HCPCS: 36415; 70450; 70552; 70553; 71046; 80048; 80053; 80307; 81003; 82140; 82607; 83735; 83880; 84439; 84443; 84481; 84484; 85014; 85018; 85025; 85610; 85730; 87070; 87075; 87081; 87205; 88307; 88331; 88341; 88342; 93005; 94640; 96374; 96375; C1713; G0378; J0171; J0690; J1100; J1644; J1650; J1953; J2405; J2704; J2710; J3010; J7620; J7626; 92523-GN; A4648; A9575; C1781; J0360; J1940; J2370; J2440; J3490; J7030